=== PATIENT | female | born 1990 | race Caucasian/White ===

== ENCOUNTER 2022-06-15 09:46 | Outpatient (CLI) | payer OTHER | END 2022-06-15 09:52 | disposition home or self-care (01) | LOC: NUCLEAR 09:46 | PROVIDERS: ATTEND Internal Medicine Cardiovascular Disease | DX: I11.9 Hypertensive heart disease without heart failure (principal) ==

== ENCOUNTER 2022-06-29 13:15 | Inpatient (IN) | payer OTHER ==
[~2022-06-29] VITALS: Ht 160 cm; Wt 116.6 kg
[2022-07-04] MEDS ORDERED: ZYRTEC10 M3 PO (07:43)
[2022-07-04] MEDS ORDERED: CHILDREN'S ASPI81 MG PO (07:44)
[2022-07-04] MEDS ORDERED: PRENATAL CAPLE1 EAC1 PO (07:44)
== END 2022-07-08 13:12 | disposition home or self-care (01) | DRG 787 ==
LOC: EDSTATUS 13:15 → OB/GYN 07-04 05:35 → LDR 07-04 05:35 → SURH 07-04 13:15 → OB/GYN 07-05 13:27
PROVIDERS: ADMIT Specialist; ATTEND Specialist
PROC: 3E0P7VZ Introduction of Hormone into Female Reproductive, Via Natural or Artificial Opening (ICD-10-PCS; 2022-07-04)
PROC: 3E033VJ Introduction of Other Hormone into Peripheral Vein, Percutaneous Approach (ICD-10-PCS; 2022-07-04)
PROC: 4A1HXCZ Monitoring of Products of Conception, Cardiac Rate, External Approach (ICD-10-PCS; 2022-07-04)
PROC: 10D00Z1 Extraction of Products of Conception, Low, Open Approach (ICD-10-PCS; principal; 2022-07-05 20:00)
DX: O61.0 Failed medical induction of labor (principal); O10.02 Pre-existing essential hypertension complicating childbirth; O62.0 Primary inadequate contractions; O99.214 Obesity complicating childbirth; E66.01 Morbid (severe) obesity due to excess calories; Z3A.38 38 weeks gestation of pregnancy; Z37.0 Single live birth; Z20.822 Contact with and (suspected) exposure to COVID-19